=== PATIENT | female | born 1950 | race Caucasian/White ===

== ENCOUNTER → 2021-11-06 | Day surgery (SDC) | payer MEDICARE, OTHER ==
[~2021-11-06] MED LIST: ACETAMINOPHEN500 M1 PO; KAPSPARGO SPRIN50 MG PO; METFORMIN HCL500 M3 PO; REMERON15 M2 PO; SERTRALINE HCL100 MG PO; SPIRONOLACTONE50 MG PO; ZETIA10 MG PO
[2021-11-06 07:29] LABS: CALCIUM 8.6 mg/dL (8.5-10.1); CREATININE 0.9 mg/dL (0.6-1.3); POTASSIUM 4.1 mmol/L (3.5-5.1)
[2021-11-06 07:56] LABS: ABSOLUTE NEUTROPHILS 3.7 thou/uL (1.6-8.1); HEMATOCRIT 44.8 % (37.0-47.0); HEMOGLOBIN 15.3 gm/dL (12.0-15.0); MCH 32.3 pg (26.0-34.0); PLATELET COUNT* 245 thou/uL (150-400); PLATELET ESTIMATE ADEQUATE; POLYS 50.9 %; RBC 4.72 mil/uL (4.20-5.00); RDW-CV 12.8 % (10.5-14.5); WBC 7.3 thou/uL (4.0-11.0)
[2021-11-06 07:57] LABS: ABSOLUTE EOSINOPHILS 0.3 thou/uL (0.0-0.7); ABSOLUTE LYMPHOCYTES 2.8 thou/uL (0.8-5.3); ABSOLUTE MONOCYTES 0.4 thou/uL (0.0-1.2); BASOPHILS 0.6 %; EOSINOPHILS 3.6 %; MONOCYTES 5.9 %
--- NOTE | 2021-11-06 15:31 | EKG ---
[place] [address] ELECTROCARDIOGRAM REPORT Name: YOAV MASTERS Room: [facility]#: [id number] Admission: 11/06/21 Attend Phys: Walker Yanez Discharge: Date of : 54 Date of Service: 11/06/21716 Report #: [id number] THIS REPORT FOR: //name// [facility] Test Date: 2021-11-06 Test Time: 07:17:09 Pat Name: YOAV MASTERS Department: Room: Gender: Lever Miller: SARAH : 1950 Requested By: Walker Sotomayor Order Number: [id number] Reading MD: Chriss Montgomery Measurements Intervals Bison Rate: 83 P: 20 AR: 155 QRS: 1 QRSD: 89 T: 15 QT: 368 QTc: 433 Interpretive Statements Sinus rhythm Multiple ventricular premature complexes Low voltage, precordial leads Left ventricular hypertrophy Compared to ECG 01/12/2009 10:04:06 Ventricular premature complex(es) now present Low QRS voltage now present Left ventricular hypertrophy now present Electronically Signed On 11-06-2021 15:31:00 [employer] by Chriss Montgomery [email or web address] <ELECTRONICALLY SIGNED> By: Chriss Montgomery MD, FACC 11/06/21 1531 07 07 Chriss Montgomery MD, FACC /EPI
--- NOTE | 2021-11-10 13:08 | PATH ---
[facility] [address] [place] [address] PATHOLOGY RPT PROCEDURE Name: KRISTA TERAN Room: [facility] M.R.#: [id number] Admission: 11/06/21 Date of : 54 Discharge: Report #: [id number] Path Case #: [id number] [facility] Accession Number: [id number] . 01 Material submitted: . abdomen - RIGHT ABDOMINAL WALL MASS. Modifiers: right, wall . 01 Clinical history: . EXCISION MASS . 02 Diagnosis: Right abdominal wall mass: - Benign skin with ruptured epithelial inclusion cyst showing acute and chronic inflammation, abscess formation, foreign body granulomatous response and fibrosis. (JAZLYN:sherri; 11/08/2021) . . . This case was prepared and proofread by Dr. Sergio Stewart and electronically released by Dr. Nico Nix. [facility]BR 11/08/2021 1744 Local . 02 Electronically signed: . Nico Nix MD, Pathologist NPI- [id number] . 01 Gross description: . The specimen is received in formalin, labeled "Krista Teran, right abdominal wall mass". Received is an ellipse of skin with underlying soft tissue measuring 3.3 x 2.0 x 2.2 cm. The epidermal surface displays a poorly defined, irregular in contour, and pale bejarano to light bejarano lesion measuring 1.0 x 0.4 x 0.3 cm. The surgical margin is inked. Sectioning reveals light bejarano to bright yellow cut and dusky to previously disrupted surfaces. The specimen is serially sectioned and submitted representatively in cassettes A1 to A2.([facility]; 11/07/2021) [facility] 11/08/2021 1552 Local . 02 Pathologist provided ICD-10: L72.0 . 02 CPT . 169760 Specimen Comment: A courtesy copy of this report has been sent to [phone] Specimen Comment: [phone] Specimen Comment: Report sent to / DR CALDERON Performed at: [address] [place] [address] PATHOLOGY RPT PROCEDURE Name: KRISTA TERAN ANN Room: [facility] Alistair.Gabriel#: [id number] Admission: 11/06/21 Date of : 54 Discharge: Report #: [id number] Path Case #: [id number] [facility] [address] [id number] MD Dawson Mazariegos MD Phone: [phone] Performed at: [address] [id number] MD Quoc Sepulveda MD Phone: [phone]
--- NOTE | 2021-11-11 12:00 | OP ---
[facility] [address] [place] [address] OPERATIVE REPORT Name: YOAV MASTERS Room: [facility] M.R.#: [id number] Admission: 11/06/21 Attend Phys: Walker Sotomayor Discharge: Date of : 54 Report #: [id number] THIS REPORT FOR: cc: Trevor Feldman MD, Anthony MD Patterson,Walker Velazco MD ~ DATE OF SURGERY: 11/06/2021 PREOPERATIVE DIAGNOSIS: Right lower quadrant abdominal wall mass, benign, 3 cm. POSTOPERATIVE DIAGNOSIS: Right lower quadrant abdominal wall mass, benign, 3 cm. OPERATION: Excision of right lower quadrant abdominal wall mass, 3 cm, benign. SURGEON: Walker Sotomayor MD ANESTHESIA: General. ESTIMATED BLOOD LOSS: Minimal. SPECIMENS: Right abdominal mass. DESCRIPTION OF PROCEDURE: After informed consent was obtained, the patient was brought to the operating room and placed supine. SCDs were placed and working and anesthesia was induced. The right lower quadrant was prepped and draped in the usual sterile fashion. I made a 3 cm elliptical incision over the mass. Cautery dissection was made down to the healthy subcutaneous fat. The mass was fully excised. I then reapproximated the skin with interrupted 3-0 nylon. Sterile dressings were applied. COMPLICATIONS: None. DISPOSITION: The patient was taken to recovery in satisfactory condition. <ELECTRONICALLY SIGNED> By: Walker Sotomayor MD 11/11/21 1200 1042 1102Walker Sotomayor MD /nt
== END | disposition home or self-care (01) ==
LOC: M.SUR 06:23
PROVIDERS: ATTEND Surgery
DX: L72.0 Epidermal cyst (principal); R19.03 Right lower quadrant abdominal swelling, mass and lump; I10 Essential (primary) hypertension; E11.9 Type 2 diabetes mellitus without complications; G43.909 Migraine, unspecified, not intractable, without status migrainosus; Z98.890 Other specified postprocedural states; Z20.822 Contact with and (suspected) exposure to COVID-19; Z91.041 Radiographic dye allergy status; Z79.899 Other long term (current) drug therapy; Z98.51 Tubal ligation status; Z90.49 Acquired absence of other specified parts of digestive tract